=== PATIENT | female | born 1945 | race Caucasian/White ===

== ENCOUNTER 2016-06-05 15:53 | Inpatient (IN) ==
[2016-06-05 16:43] LABS: MANUAL DIFF NEEDED? NO
[2016-06-05 16:47] LABS: BASO% 0.7 % (0.0-0.8); EOS# 0.19 X1000 (0.0-0.7); EOS% 3.5 % (0.0-10.0); HEMATOCRIT 39.2 % (37.0-47.0); HEMOGLOBIN 13.4 g/dL (12.0-16.0); LYMPH# 1.48 X1000 (1.2-3.4); LYMPH% 26.9 % (20.5-51.1); MCH 30.5 PG (27-31); MCHC 34.2 g/dL (33-37); MCV 89.1 FL (81-99); MONO# 0.28 X1000 (0.11-0.59); MONO% 5.1 % (1.7-9.3); MPV 9.3 FL (7.4-10.4); NEUT% 63.8 % (42.2-75.2); PLT 371 X1000 (130-400)
[2016-06-05 16:57] LABS: INR 0.97; PROTIME 10.2 Seconds (9.2-11.7); PTT 27.5 Seconds (22.0-36.0)
--- NOTE | 2016-06-05 17:05 | Diag Imaging Result Document ---
PROCEDURE NAME: CHEST-PORTABLE - 06/05/2016 PORTABLE CHEST: FINDINGS: The lungs are well expanded. The heart is not enlarged. The vessels are not distended. No pneumonia. No pleural effusions identified. IMPRESSION: Negative chest.
[2016-06-05 17:07] LABS: AGAP 14; ALBUMIN 4.5 g/dL (3.5-5.0); ALKALINE PHOSPHATASE 59 U/L (32-104); BUN 9 mg/dL (8-22); CALCIUM 9.4 mg/dL (8.8-10.2); CHLORIDE 97 mmol/L (98-107); COSMO 278; GOT 25 U/L (10-30); GPT 16 U/L (10-36); POTASSIUM 2.7 mmol/L (3.5-5.1); SODIUM 140 mmol/L (136-145); TCO2 29 mmol/L (25-35); TOTAL BILIRUBIN 0.72 mg/dL (0.20-1.00); TOTAL PROTEIN 7.4 g/dL (6.3-8.3)
[2016-06-05 17:10] LABS: CK PROFILE 528 U/L (24-173)
[2016-06-05 17:11] LABS: ALLEN TEST YES; BE 6.1 mmoll (-3.0-3.0); BLOOD TYPE ARTERIAL; DRAW SITE L RADIAL; METHB 1.8 % (0.0-1.5); O2(CT) 15.8 mL/dL (15.0-23.0); PCO2(98.6) 43 mmHg (35-45); PO2(98.6) 73 mmHg (60-100); SAMPLE BLOOD; SAO2 98.3 % (95.0-100.0); THB 11.8 g/dL (11.5-17.4); pH(98.6) 7.46 (7.35-7.45)
[2016-06-05 17:11] LABS: URINE CULTURE NEEDED? NO; URINE MICRO REVIEW NEEDED? NO; URINE SOURCE CATH
--- NOTE | 2016-06-05 17:11 | Diag Imaging Result Document ---
PROCEDURE NAME: HEAD W/O CONTRAST - 06/05/2016 CT BRAIN WITHOUT CONTRAST: FINDINGS: No parenchymal hemorrhage. No epidural or subdural hematoma. No subarachnoid hemorrhage. Prominent microvascular ischemic changes. No mass identified on this noncontrasted exam. No sinus opacification. IMPRESSION: 1. No hemorrhage. 2. Prominent microvascular ischemic changes. A preliminary report was given at 4:50 PM.
[2016-06-05 17:12] LABS: MODALITY ROOM AIR
[2016-06-05 17:15] LABS: BILIRUBIN URINE NEGATIVE (NEGATIVE); BLOOD URINE TRACE (NEGATIVE); COLOR YELLOW; GLUCOSE URINE NEGATIVE (NEGATIVE); LEUKOCYTES URINE NEGATIVE (NEGATIVE); NITRITE URINE NEGATIVE (NEGATIVE); PH URINE 6.5; PROTEIN URINE TRACE mg/dL (NEGATIVE); TURBIDITY URINE CLEAR (CLEAR); UROBILINOGEN URINE NORMAL (NORMAL)
[2016-06-05 17:16] LABS: UR EPITHELIAL CELLS <10 /HPF (<10); URINE BACTERIA NEGATIVE /HPF; URINE RBC <10 /HPF (<10); URINE WBC <10 /HPF (<10)
[2016-06-05 17:27] LABS: CK INDEX 2.5 (0.0-2.5); CK-MB 13.45 ng/mL (0.0-5.0)
[2016-06-05] MEDS ORDERED: NS + KCL 20 MEQ 1,000 ML IV SCH (17:57)
[2016-06-05] MEDS ORDERED: KLOR-CON PO ONE (19:33)
[2016-06-05] MEDS ORDERED: ASPIRIN PO ONE (20:32)
[2016-06-05 20:47] LABS: UR AMPHETAMINES QUAL NONE DETECTED (NONE DETECT); UR BARBITUATES QUAL NONE DETECTED (NONE DETECT); UR BENZODIAZEPIN QUAL NONE DETECTED (NONE DETECT); UR CANNABINOIDS QUAL NONE DETECTED (NONE DETECT); UR COCAINE QUAL NONE DETECTED (NONE DETECT); UR METHADONE QUAL NONE DETECTED (NONE DETECT); UR OPIATES QUAL PRESUMPTIVE POSITIVE (NONE DETECT); UR OXYCODONE QUAL NONE DETECTED (NONE DETECT); UR PCP QUAL NONE DETECTED (NONE DETECT)
[2016-06-05 20:51] LABS: MAGNESIUM 1.9 mg/dL (1.5-2.7)
[2016-06-05] MEDS ORDERED: ZOFRAN IV PRN (21:36)
--- NOTE | 2016-06-05 21:50 | HISTORY AND PHYSICAL ---
PRIMARY CARE PROVIDER: Oscar Leal. CHIEF COMPLAINT: Weakness and difficulty walking. HPI: This is a 70-year-old female who comes into the emergency room today with her . They are both poor historians about her medical history. Apparently she has had around a year and a half of weakness. She had a hip injury, unsure which hip at this time, in the past 6 months or so. They were unable to describe if the hip was injured or broken. Apparently she did not have surgery on it. At any rate, she did not finish the physical therapy or so her family tells me. The patient is not very forthcoming about her medical history at all. She reportedly reads side effects of medications and stops taking them. She seems to have a past medical history of hypertension, hyperlipidemia and hypothyroidism. Per the patient she only takes a thyroid pill and Parkman occasionally for pain. According to the over the last 3 days she has stopped being able to ambulate. He stated that a couple of steps would take her several minutes. She has a walker but reportedly does not use it. She also has a motorized wheelchair that she does not seem to use. There was also some concern that she over the last day or so has been slurring her speech somewhat. On arrival laboratory data as well as a CT of her head and chest x-ray were obtained. Chest x-ray was negative. CT of her head showed prominent microvascular changes. The patient will be admitted for further evaluation and treatment. ALLERGIES: Latex and natural rubber as well as an unknown antibiotic. PAST MEDICAL HISTORY: Hypertension with no apparent treatment, questionable hyperlipidemia, hypothyroidism, chronic pain. PREVIOUS SURGICAL HISTORY: 1. Questionable lung surgery unsure which side. 2. Right foot surgery. 3. Partial thyroidectomy. SOCIAL HISTORY: Lives home with her . 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 Denies tobacco, alcohol or illicit drug use or abuse. They live in [place]. She has family that lives close by as well. 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 Children have osteoarthritis. Otherwise denies any family history. HOME MEDICATIONS: Parkman 5 one q.4-6 p.r.n., levothyroxine 112 mcg p.o. q.a.m. REVIEW OF SYSTEMS: Fourteen-point review of systems conducted with the patient. She complains of weakness in her legs. Denies dizziness, headache, chest pain, shortness of breath. Has complained of general fatigue. Denies nausea, vomiting, diarrhea, hematochezia , hematemesis, melena, hematuria dysuria. Does have complaint of occasional constipation. All other systems were reviewed and negative. PHYSICAL EXAMINATION: VITAL SIGNS: Temperature 98 degrees, pulse 59, respirations 16, blood pressure 169/89, oxygen saturation 98% on room air. GENERAL: Pleasant 70-year-old female who is a poor historian lying in the ER stretcher in no acute distress. She is alert and oriented x3. HEENT: Head is atraumatic, normocephalic. Pupils equal, round, reactive to light. Extraocular eye movement intact. Sclerae is anicteric. Conjunctivae is pink. Oral mucosa is moist. NECK: Supple. No JVD. No thyromegaly. Trachea is midline. No cervical lymphadenopathy. CARDIAC: Regular rhythm. S1-S2 appreciated. No murmurs, gallops, rubs. LUNGS: Clear to auscultation bilaterally. No rhonchi, wheezes or rales. Symmetrical rise and fall respirations. ABDOMEN: Soft, nondistended, nontender. Bowel sounds hypoactive all 4 quadrants. No pulsatile mass. No organomegaly. EXTREMITIES: No clubbing, cyanosis, or edema, 2+ pedal pulses bilaterally. MUSCULOSKELETAL: Global weakness noted, 4/5 upper extremity strength. Poor handgrip strength, able to hold extremities to gravity. Bilateral lower extremity 2 to 3/5 equal bilateral lower extremity strength, is able though hold for few seconds against gravity. NEUROLOGICAL: Alert and oriented x3. Somewhat delayed in answering questions. Cranial nerves 2- 12 appear to be grossly intact. DIAGNOSTIC DATA: CT of the head shows prominent microvascular ischemic changes. No hemorrhage. LABORATORY DATA: CBC within normal limits, coagulations within normal limits. ABG pH 7.46, pCO2 43, PO2 73, bicarb 29.6, this was on room air. Sodium 140 potassium 2.7, chloride 97, carbon dioxide 29, BUN 9, creatinine 0.8, glucose 92. CK 528, CK/MB 13.45, troponin 0.016. Urine. Trace protein and ketones otherwise unremarkable. Serum alcohol negative. ASSESSMENT AND PLAN: 1. Cerebrovascular accident versus transient ischemic attack with other differentials to include chronic atrophy related to age or early vascular dementia. The patient has been having weakness over the past year and a half which has been increasing. Apparently there has been a steep decline over the past 3 days. Aspirin 325 was given in the emergency room. Will continue aspirin 81 mg daily, check folate, B12, vitamin D, echocardiogram, carotid ultrasound and MRI in a.m. Check lipid profile. We will start patient on Zocor 20 mg p.o. until lipid profile returns. Place patient on aspiration precautions at this time. 2. Hypertension aware. This apparently is untreated at home as the patient removed herself from her medications. This will be watched overnight and conservatively treated if needed until CVA is ruled out. 3. Hyperlipidemia. Again patient is not on medication. Lipid profile has been ordered. Will start Zocor 20 mg p.o. at bedtime. 4. Hypothyroidism. Will order TSH, continue home Synthroid. 5. Elevated CK profile, will trend. This is possibly related to rhabdomyolysis as the patient has been somewhat bedbound over the last few days. Will consult Physical Therapy to begin working with the patient. Normal saline at 75 mL an hour. Further recommendations per patient clinical course. Dictated by GENIE García for Jayy Junior MD cc: MD Jayy Cleaning MD MTDD
[2016-06-05 23:04] LABS: CK INDEX 2.6 (0.0-2.5); CK-MB 9.93 ng/mL (0.0-5.0)
[2016-06-06] MEDS: NS 1,000 ML IV SCH ×2 (00:30→10:25)
[2016-06-06] MEDS: ZOCOR PO SCH ×3 (00:30→21:53)
[2016-06-06] MEDS: LOVENOX SUBQ SCH ×2 (00:30→21:50)
[2016-06-06] MEDS: SYNTHROID PO SCH (06:15)
[2016-06-06 07:48] LABS: AGAP 14; BUN 6 mg/dL (8-22); CALCIUM 8.2 mg/dL (8.8-10.2); CHLORIDE 106 mmol/L (98-107); CK PROFILE 397 U/L (24-173); COSMO 283; POTASSIUM 3.5 mmol/L (3.5-5.1); SODIUM 144 mmol/L (136-145); TCO2 24 mmol/L (25-35)
[2016-06-06 08:01] LABS: CK INDEX 2.7 (0.0-2.5); CK-MB 10.67 ng/mL (0.0-5.0)
[2016-06-06] MEDS ORDERED: ASPIRIN PO SCH (09:00)
[2016-06-06] MEDS: ASPIRIN PO SCH (09:12)
--- NOTE | 2016-06-06 15:25 | PROGRESS NOTE ---
DATE: 06/06/2016 SUBJECTIVE: Patient reports feeling fine. Although we noticed some slurred speech. OBJECTIVE: Vital Signs: Temperature 98.4 degrees, heart rate 57, respiratory rate 16, blood pressure 159/91. O2 saturation 100% on room air. General Examination: This is a very pleasant 70-year-old female lying in bed, in no acute distress. HEENT: Head is normocephalic, atraumatic. Anicteric sclerae and pale conjunctivae. Mucous membranes moist. Pupils equal, round, reactive to light and accommodation. Neck: Supple. No JVD noted. No carotid bruits. No lymphadenopathy. No thyromegaly. Cardiovascular: S1, S2 heard. No murmurs, gallops, or rubs. Regular rate and rhythm. Respiratory: Clear bilaterally to auscultation. No work of breathing or using accessory muscles. Abdomen: Soft, nontender to palpation. Bowel sounds present. No organomegaly. Extremities: No clubbing, cyanosis, or edema. Peripheral pulses present in both legs. Neurological: Motor strength 5/5 in both upper and lower extremities. Sensation is intact. Cranial nerves 2-12 grossly normal. But there is noted slurring speech that is something new according to the daughter who is at bedside. LABORATORY DATA: The labs from yesterday including CBC and BMP are completely normal. ASSESSMENT: 1. Cerebrovascular accident versus transient ischemic attack. 2. Hypertension. 3. Hyperlipidemia. 4. Hypothyroidism. 5. Left hip pain. PLAN: 1. The patient was admitted to the hospital but we would not were not completely sure about the real history. The patient is a very poor historian. Apparently, as per H P, it looks like she noticed a weakness for last 3 days and then she had a fall. Today upon my physical examination of the lower extremities the okay. He is normal so in any case, for suspicion of any stroke we are going to do an MRI of the brain and MRA of the brain and the neck. Also, because she had a fall and she had a possible trauma in the pelvis that was not checked by any doctor, so we are going to repeat CT of the abdomen and pelvis not only to see the bony structures but also because there is a history of weight between 30 and 45 pounds unintentionally. 2. For hypertension, we are going to continue checking blood pressure every 6 hours and will restart home medications in order to control heart rate and control blood pressure. 3. For hypothyroidism, we will continue with Synthroid. cc: Jean Carlos Jean Baptiste MD
[2016-06-06] MEDS: NORCO-5 PO PRN (17:51)
[2016-06-07] MEDS: NS 1,000 ML IV SCH ×2 (00:46→16:34)
[2016-06-07] MEDS: SYNTHROID PO SCH (05:59)
[2016-06-07] MEDS ORDERED: ATIVAN IV ONE (07:00)
--- NOTE | 2016-06-07 09:08 | Diag Imaging Result Document ---
PROCEDURE NAME: THORAX/ABDOMEN/PELVIS - 06/07/2016 CT CHEST WITH INTRAVENOUS CONTRAST: A CT dose reduction protocol was used. COMPARISON: 06/05/2016. FINDINGS: There is a trace left pleural effusion. There is a small pericardial effusion. Heart size is, otherwise, grossly normal. The great vessels are normal. There is some scattered linear atelectasis in the lung bases. Otherwise, no suspicious infiltrates. There are severe compression fractures of over 75% at T11 and L1. IMPRESSION: Trace left pleural effusion. Small pericardial effusion. Age- indeterminate compression fractures. CT ABDOMEN AND PELVIS WITH INTRAVENOUS CONTRAST: A CT dose reduction protocol was used. COMPARISON: None. FINDINGS: The liver, gallbladder, spleen, pancreas, adrenals, and kidneys are normal. There is moderate constipation. No bowel obstruction or inflammation. Urinary bladder, uterus, and rectum are normal. There are several scattered diverticula of the sigmoid colon. There are compression fractures at T11 and L1. IMPRESSION: Constipation. Diverticulosis coli. Otherwise, no acute disease. [facility]
--- NOTE | 2016-06-07 10:20 | Diag Imaging Result Document ---
PROCEDURE NAME: MRI BRAIN W W/O CONTRAST - 06/07/2016 MRI BRAIN WITHOUT AND WITH INTRAVENOUS CONTRAST: COMPARISON: Head CT 06/05/2016. FINDINGS: There is no area of restricted diffusion. There is significant periventricular white matter chronic microvascular disease. There is an old lacune at the superior left frontal lobe deep white matter. No intracranial mass or hemorrhage. No obvious, abnormal contrast enhancement. IMPRESSION: Chronic ischemic changes of the brain. No acute disease.
--- NOTE | 2016-06-07 10:33 | Diag Imaging Result Document ---
PROCEDURE NAME: MRA BRAIN W/O CONTRAST - 06/07/2016 MR ANGIOGRAM OF THE HEAD: COMPARISON: None. FINDINGS: Noncontrast time of flight technique was used. The major intracranial vessels are all normal. There is no evidence of aneurysm or significant stenosis. IMPRESSION: Negative exam.
[2016-06-07] MEDS: ASPIRIN PO SCH (10:40)
--- NOTE | 2016-06-07 10:42 | Diag Imaging Result Document ---
PROCEDURE NAME: MRA NECK W/CONT - 06/07/2016 COMPARISON: None. FINDINGS: Normal aortic arch. The great vessel origins are patent. The vertebrobasilar system is patent. On the right side, the common carotid artery is patent. There is minimal narrowing of the mid internal carotid artery, by perhaps about 25%. This is probably not significant. On the left side, the carotid artery system is patent. There is no evidence of stenosis here. No aneurysm. There is significant redundancy of both internal carotid arteries. IMPRESSION: Minimal stenosis of the mid right internal carotid artery by about 25%, otherwise negative exam.
--- NOTE | 2016-06-07 14:08 | ECHO REPORT ---
ORDER DATE: 06/06/2016 ECHOCARDIOGRAPHIC MEASUREMENTS: 1. Interventricular septum 0.8. Left ventricular posterior wall 0.8. Diastolic diameter 5.0. Left atrium 3.6. Aorta 3.7. 2. Normal left ventricular cavity size. Estimated ejection fraction of 60%. 3. Aortic valve leaflets were trileaflet, mildly sclerosed. Pulmonic valve was normal. Mitral valve was normal. Tricuspid valve was normal. 4. Peak velocity across the aortic valve less than 2 m/sec. There is no aortic stenosis. There is trace to mild aortic regurgitation. 5. There is trace to mild mitral regurgitation. 6. Mild tricuspid regurgitation. Peak velocity across the tricuspid valve was 2.1 m/sec. 7. There is no pericardial effusion or obvious intracardiac mass or thrombus seen. cc: MD Rell Gibson CRNP
--- NOTE | 2016-06-07 16:09 | PROGRESS NOTE ---
DATE: 06/07/2016 SUBJECTIVE: Patient reports feeling fine. She is still showing slurred speech but better in comparing with yesterday. She reports still feeling weak. OBJECTIVE: Vital Signs: Temperature 98.2 degrees, heart rate 76, respiratory rate 14, blood pressure 145/87, O2 saturation 97% on room air. General examination: This is a very pleasant, 70-year-old female lying in bed, in no acute distress. HEENT: Head is normocephalic, atraumatic. Anicteric sclerae. Pale conjunctivae. Mucous membranes moist. Pupils equal, round, reactive to light and accommodation. Neck: Supple. No JVD noted. No carotid bruits. No lymphadenopathy. No thyromegaly. Cardiovascular: S1, S2 heard. No murmurs, gallops, or rubs. Regular rate and rhythm. Respiratory: Clear bilaterally to auscultation. No work of breathing or using accessory muscles. Abdomen: Soft. Nontender to palpation. Bowel sounds present. No organomegaly. Extremities: No clubbing, cyanosis, or edema. Peripheral pulses present in both legs. Neurological: There is motor strength noted in 4 extremities. 5/5. Sensation is intact. Cranial nerves 2 through 12 grossly normal. Patient complains of back pain. LABORATORY DATA: There are no labs from today. ASSESSMENT: 1. Possible transient ischemic attack. 2. Hypertension. 3. Hyperlipidemia. 4. Hypothyroidism. 5. Left hip pain. 6. Physical deconditioning. PLAN: The patient was admitted to the hospital because although the patient is not a good historian, apparently there was a report that this patient was not able to walk completely and she had a fall. Patient was admitted for possible stroke versus TIA. We have done an MRI and MRA of the brain and MRA of the neck and they did not show anything in particular. Also because of a history of weight loss of 30-40 pounds during the last year unintentionally we have ordered a CT of the chest, abdomen, and pelvis looking for any malignancy and there was just some constipation. In any case, this patient seems like she is declining really quick so what our plan is now considering that all the workup has returned negative and the only exam that this is missing is the echo, our plan is to try to get her to a rehab facility because this patient is very weak. She has a history of recurrent falls. For hypertension, we will continue with the with the same management. For hypothyroidism, we will continue with Synthroid. cc: Jean Carlos Jean Baptiste MD
[2016-06-07] MEDS: LOVENOX SUBQ SCH (20:57)
[2016-06-07] MEDS: ZOCOR PO SCH (20:57)
[2016-06-07] MEDS: NORCO-5 PO PRN (22:00)
[2016-06-08] MEDS: NS 1,000 ML IV SCH (03:06)
[2016-06-08] MEDS: NORCO-5 PO PRN ×2 (03:06→20:49)
[2016-06-08] MEDS: SYNTHROID PO SCH (06:15)
[2016-06-08] MEDS: ASPIRIN PO SCH (08:02)
[2016-06-08] MEDS ORDERED: DULCOLAX PR ONE (14:36)
[2016-06-08] MEDS: MIRALAX PO SCH (16:03)
[2016-06-08] MEDS ORDERED: FLEET ENEMA PR ONE (18:10)
--- NOTE | 2016-06-08 18:44 | PROGRESS NOTE ---
DATE: 06/08/2016 SUBJECTIVE: This patient states that she is feeling better. She is complaining today of constipation. She is still having some slurred speech but apparently she is getting better as per the family members, and she states also that she has generalized weakness. OBJECTIVE: Vital Signs: Temperature 98.4 degrees, pulse 66, respiratory rate 20, blood pressure 162/88, O2 saturation 98 on room air. HEENT: Head normocephalic. No trauma. PERRLA. Neck: Supple. No JVD. No masses. Central trachea. Cardiovascular: RRR. No murmurs. Chest: Clear to auscultation. No wheezing. No rales. Abdomen: Soft, nontender, nondistended. No hepatosplenomegaly. Extremities: No clubbing, no cyanosis. No edema. Neurological: The patient is alert and oriented. She moves all 4 extremities but she has generalized weakness around 4/5. LABORATORY: No lab work today. ASSESSMENT AND PLAN: 1. Questionable TIA. We had a result of MRI and MRA of the brain and neck that did show any acute abnormality. We are going to still treat this patient in the hospital. We are trying to send this patient to a rehab center because of her generalized weakness. 2. Hypertension. I will start this patient on blood pressure medication. I will start with lisinopril 10 and I will adjust the dose accordingly. 3. Hyperlipidemia. This patient is on simvastatin. Continue the same management. 4. Hypothyroidism. Continue with Synthroid. 5. Left hip pain. This patient is on pain medication. 6. Physical deconditioning. Physical therapy is on board. reworker on board and looking for a rehab center placement. cc: Shadi Fraire MD
[2016-06-08] MEDS: LOVENOX SUBQ SCH (20:49)
[2016-06-08] MEDS: ZOCOR PO SCH (20:52)
[2016-06-09] MEDS: NORCO-5 PO PRN (00:24)
[2016-06-09] MEDS: SYNTHROID PO SCH (06:20)
[2016-06-09 07:29] LABS: MANUAL DIFF NEEDED? NO
[2016-06-09 07:46] LABS: BASO% 0.3 % (0.0-0.8); EOS# 0.18 X1000 (0.0-0.7); EOS% 2.6 % (0.0-10.0); HEMOGLOBIN 12.4 g/dL (12.0-16.0); LYMPH# 0.88 X1000 (1.2-3.4); LYMPH% 12.8 % (20.5-51.1); MCH 30.2 PG (27-31); MCHC 33.5 g/dL (33-37); MONO# 0.41 X1000 (0.11-0.59); MPV 9.6 FL (7.4-10.4); NEUT% 78.3 % (42.2-75.2); PLT 319 X1000 (130-400); RBC 4.11 XMIL (4.2-5.4)
[2016-06-09 08:07] LABS: AGAP 12; BUN 9 mg/dL (8-22); CALCIUM 9.1 mg/dL (8.8-10.2); CHLORIDE 104 mmol/L (98-107); COSMO 281; POTASSIUM 3.5 mmol/L (3.5-5.1); SODIUM 142 mmol/L (136-145); TCO2 26 mmol/L (25-35)
[2016-06-09] MEDS: ASPIRIN PO SCH (08:40)
[2016-06-09] MEDS: MIRALAX PO SCH (08:41)
[2016-06-09] MEDS ORDERED: PRINIVIL PO SCH (09:00)
[2016-06-09 13:52] VITALS: BP 167/97
--- NOTE | 2016-06-09 14:09 | DISCHARGE SUMMARY ---
ADMISSION DATE: 06/05/2016 DISCHARGE DATE: 06/09/2016 CONSULTATIONS: None. PERTINENT PROCEDURES: 1. Head CT showed no hemorrhage, prominent microvascular ischemic changes. 2. Echocardiogram showed an ejection fraction of 60%. 3. Brain MRA negative. 4. Brain MRI showed chronic ischemic changes of the brain, no acute disease. 5. Neck MRA showed minimal stenosis of the mid right internal carotid artery by about 25%. Otherwise, negative examination. 6. Chest, abdomen, and pelvis CT showed trace pleural effusions. Small pericardial effusion, age indeterminate. Compression fractures, constipation, and diverticulosis coli, but otherwise no acute disease. DISCHARGE DIAGNOSES: 1. Questionable transient ischemic attack. While workup did not show any acute abnormality, patient will be discharged to rehabilitation in reference to her generalized weakness. 2. Hypertension. Continue with home medications. 3. Hyperlipidemia. Continue statin. 4. Hypothyroidism. Continue Synthroid. 5. Left hip pain. Continue on pain medication. 6. Physical deconditioning. The patient has worked with physical therapy and will be discharged to rehabilitation. HOSPITAL COURSE: Briefly, Ms. Patel is a 70-year-old female who has a past medical history of hypertension, questionable hyperlipidemia, hypothyroidism, and chronic pain. The patient came to the emergency department because the patient has had around 1-1/2 years of weakness. She had a hip injury, unsure exactly what time it had happened, but was in the last 6 months or so. They were unable to describe how the hip was injured or broken. There was no surgery performed on the hip. The patient did not finish any physical therapy. She reportedly reads side effects of medications and she will stop taking them. She will only take her thyroid pill and Magna occasionally, but, according to the , the patient over the last 3 days had stopped being able to ambulate. He stated that she would take a couple of steps and that even that would take her several minutes. She has a walker, but reportedly does not use it. She also has a motorized wheelchair that she does not seem to use, and there was concern that over the last day or so prior to her admission she had been slurring her speech somewhat. On arrival in the emergency department, her laboratory data as well as CT of her head and chest x-ray were all negative. The patient was admitted for cerebrovascular accident versus transient ischemic attack. All workup was negative and just showed chronic microvascular ischemic changes. She did have a mild stenosis of the mid right internal carotid artery by about 25%. There was also reported weight loss history of 30-40 pounds during this last year unintentionally. Did a CT of the chest, abdomen, and pelvis looking for any malignancies. There was just some kind constipation and diverticulosis. Physical Therapy was consulted to work with the patient. [facility] was consulted for rehabilitation placement. The patient is appropriate for discharge today to rehabilitation. VITAL SIGNS: Temperature is 98.4 degrees, heart rate 70, respirations 20, blood pressure 149/83, O2 saturation is 98% on room air. DISCHARGE MEDICATIONS: 1. Aspirin 81 mg p.o. daily. 2. Magna 1 tablet p.o. q.4-6 hours p.r.n. 3. Synthroid 112 mcg p.o. q.a.m. 4. Prinivil 10 mg p.o. daily. 5. MiraLAX 17 g p.o. daily. 6. Zocor 20 mg p.o. at bedtime. FOLLOWUP: Patient is being discharged to rehabilitation. She can follow up with her primary care physician, Dr. Oscar Leal, after rehabilitation. Patient can return to the emergency department for any worsening of symptoms. Dictated by GENIE Chin for Shadi Fraire MD cc: MD Oscar Carlisle MD
--- NOTE | 2016-06-22 02:48 | PROVIDER DOCUMENTATION ---
This chart was entered by Funmi Banda Scribe, acting as scribe for Seamus Clark MD. HPI-General Adult - General Source: patient <Josh Walters - Last Filed: 06/16/16 17:01> - General Source: patient - History of Present Illness -Gen Adult Nature of Presenting Problems: Pt is a 70 yof who came to the ED with a cc of weakness and slurred speech. Pt reports she has had weakness for a while and had a MRI done and there was nothing found. Pt reports he weakness got worse over the past two days, she is dragging her right foot and has slurred speech. Location of Pain/Injury: reports: none Pain Radiation: reports: no radiation Quality of Pain: reports: none Onset/Duration: reports: 1 week ago Timing: reports: still present Modifying Factors: improves with: movement Associated Symptoms: reports: sensory/motor loss, weakness, trouble walking Similar Symptoms Previously?: Yes Recently seen or treated by another doctor?: Yes <Seamus Clark I - Last Filed: 06/22/16 02:47> - General Chief Complaint: Weakness Stated Complaint: CANT WALK,SLURRED SPEECH Time Seen by Provider: 06/05/16 16:19 Allergies/Adverse Reactions: Patient Allergies Allergy/AdvReac Type Severity Reaction Status Date / Time Latex, Natural Rubber Allergy RASH Verified 06/05/16 16:43 UNKNOWN ANTIBIOTIC Allergy SHORTNESS Uncoded 06/05/16 16:44 OF BREATH Home Medications: Home Medication List Medication Instructions Recorded Confirmed Last Taken Type Hydrocodone/Acetaminophen 1 tab PO Q4-6H PRN PRN 06/05/16 06/05/16 2 Days Ago History [Hydrocodon-Acetaminophen 5-325] Levothyroxine Sodium 112 mcg PO QAM 06/05/16 06/05/16 1 Day Ago History Aspirin 81 mg PO DAILY #90 chewtab 06/09/16 Unknown Rx Hydrocodone/APAP 5 mg/325 mg 1 each PO TID PRN PRN #20 tablet 06/09/16 Unknown Rx [[place]-5] LISINOpril [Prinivil] 10 mg PO DAILY #90 tablet 06/09/16 Unknown Rx Polyethylene Glycol 3350 [Miralax] 17 gm PO DAILY powder, packet 06/09/16 Unknown Rx SIMVAstatin [Zocor] 20 mg PO QHS #90 tablet 06/09/16 Unknown Rx Review of Systems - Adult - REVIEW OF SYSTEMS - ADULT Constitutional: reports: no symptoms reported Eyes: reports: no symptoms reported Ears, Nose, Mouth & Throat: reports: no symptoms reported Cardiovascular: reports: no symptoms reported Respiratory: reports: no symptoms reported Gastrointestinal: reports: no symptoms reported Genitourinary: reports: no symptoms reported Musculoskeletal: reports: no symptoms reported Integumentary: reports: no symptoms reported Neurological: reports: no symptoms reported Psychiatric: reports: no symptoms reported Endocrine: reports: no symptoms reported Hematologic/Lymphatic: reports: no symptoms reported Allergic/Immunologic: reports: no symptoms reported All Other Systems: Reviewed and Negative <Josh Walters - Last Filed: 06/16/16 17:01> - REVIEW OF SYSTEMS - ADULT Constitutional: denies: chills, fever Eyes: denies: decreased vision, double vision Ears, Nose, Mouth & Throat: reports: no symptoms reported Cardiovascular: denies: chest pain, heart murmur Respiratory: denies: pleurisy, wheezing Gastrointestinal: reports: no symptoms reported Genitourinary: reports: no symptoms reported Musculoskeletal: reports: no symptoms reported Integumentary: reports: no symptoms reported Neurological: reports: loss of balance, slurred speech. denies: paresthesia, seizure Psychiatric: reports: no symptoms reported Endocrine: reports: no symptoms reported Hematologic/Lymphatic: reports: no symptoms reported Allergic/Immunologic: reports: no symptoms reported All Other Systems: Reviewed and Negative <Seamus Clark I - Last Filed: 06/22/16 02:47> Past History - Adult - PAST MEDICAL HISTORY-ADULT Review of Records: reports: Old Records Reviewed, Nursing Assessment Review Major Childhood Illnesses: reports: denies history <Josh Walters - Last Filed: 06/16/16 17:01> - PAST MEDICAL HISTORY-ADULT Review of Records: reports: Old Records Reviewed, Nursing Assessment Review Major Childhood Illnesses: reports: denies history Cardiovascular: reports: HTN, hyperlipidemia Respiratory: reports: denies history Gastrointestinal: reports: denies history Obstetrical/Gynecological: reports: denies history Genitourinary: reports: denies history Musculoskeletal: reports: denies history Neurological: reports: denies history Endocrine/Immune: reports: thyroid disorder Other Conditions: reports: denies history - IMMUNIZATION STATUS Childhood Immunizations: See Nurse Assessment Flu Vaccine: See Nurse Assessment - FAMILY HISTORY Family History: reviewed, not pertinent <Seamus Clark I - Last Filed: 06/22/16 02:47> Physical Exam-General - CONSTITUTIONAL General Appearance: appears well, alert <Josh Walters - Last Filed: 06/16/16 17:01> - CONSTITUTIONAL General Appearance: appears well, alert - EYES Eyes: PERRL/EOMI, pink conjunctivae - HEAD, EARS, NOSE, MOUTH & THROAT HENMT: normocephalic/atraumatic, moist mucous membranes, normal ENT inspection - NECK Neck: non-tender - RESPIRATORY Respiratory: chest non-tender, lungs clear, normal breath sounds - CARDIOVASCULAR Cardiovascular: normal peripheral pulses, regular rate, rhythm, no edema - GASTROINTESTINAL (ABDOMEN) Abdominal Exam: normal bowel sounds, non tender - LYMPHATIC Lymphatic: no adenopathy - MUSCULOSKELETAL Back Exam: normal inspection, no CVA tenderness, no vertebral tenderness - SKIN Integumentary: normal color, normal turgor - NEUROLOGIC Neurologic: motor weakness - PSYCHIATRIC Psych/Mental Status: normal mood/affect, normal thought content, normal thought process, oriented x 3 <Seamus Clark I - Last Filed: 06/22/16 02:47> Progress - PLAN OF CARE/RESULTS Progress/Plan/Lab Results: Orders Category Date Time Status Admit - [facility] Routine AdmDCTranf 06/05/16 21:36 Ordered Activity - Strict Bedrest Q1D Care 06/05/16 21:36 Active Aspiration Precautions DIRECTED Care 06/05/16 21:36 Active Cardiac Monitoring DIRECTED Care 06/05/16 16:26 Completed Elevate Head of Bed DIRECTED Care 06/05/16 21:36 Active Finger Stick Blood Sugar (ED) DIRECTED Care 06/05/16 16:26 Completed IV Insertion ORDERED Care 06/05/16 21:36 Completed Intake and Output-Strict ORDERED Care 06/05/16 21:36 Active Neurological Check q4h Care 06/05/16 21:36 Active Oxygen Therapy- ED Nursing DIRECTED Care 06/05/16 16:26 Completed Saline Loc NOW Care 06/05/16 16:26 Completed Vital Signs Order Q6-HR ASSESS Care 06/05/16 21:36 Active Social Service Consult Routine Cons 06/05/16 21:36 Active Mechanical Soft Diet Diet 06/05/16 20:18 Completed CHEST-PORTABLE [RAD] Stat Exams 06/05/16 16:26 Completed HEAD W/O CONTRAST [CT] Stat Exams 06/05/16 16:26 Completed ABG [RESP] Routine Lab 06/05/16 17:00 Completed ALCOHOL BLOOD Stat Lab 06/05/16 16:12 Completed BASIC METABOLIC PANEL [CHEM] Routine Lab 06/06/16 06:55 Completed CBC WITH ELECTRONIC DIFF [HEME] Stat Lab 06/05/16 16:12 Completed CK PROFILE [SP CHEM] NOW Lab 06/05/16 22:17 Completed CK PROFILE [SP CHEM] Routine Lab 06/06/16 06:55 Completed CK PROFILE [SP CHEM] Stat Lab 06/05/16 16:12 Completed COMPREHENSIVE METABOLIC PANEL [CHEM] Stat Lab 06/05/16 16:12 Completed FOLATE Stat Lab 06/05/16 22:17 Completed LACTATE, PLASMA [CHEM] Stat Lab 06/05/16 16:59 Completed LIPID PROFILE W/DIR LDL [LIPIDS] Routine Lab 06/06/16 06:55 Completed MAGNESIUM [CHEM] Routine Lab 06/05/16 16:12 Completed PROTIME WITH INR [COAG] Stat Lab 06/05/16 16:12 Completed PTT [COAG] Stat Lab 06/05/16 16:12 Completed Po4 [PHOSPHORUS] [CHEM] Stat Lab 06/05/16 16:12 Completed TROPONIN T NOW Lab 06/05/16 22:17 Completed TROPONIN T Routine Lab 06/06/16 06:55 Completed TROPONIN T Stat Lab 06/05/16 16:12 Completed TSH Stat Lab 06/05/16 22:17 Completed UDS [URINE DRUG SCREEN] Stat Lab 06/05/16 16:59 Completed URINALYSIS W/POSS RFLX CULT-1 [URINALYSIS] Stat Lab 06/05/16 16:59 Completed VITAMIN B12 Stat Lab 06/05/16 22:17 Completed VITAMIN D 25 HYDROXY Routine Lab 06/06/16 06:55 Completed 0.9% Sodium Chloride Inj [Ns] 1,000 ml Med 06/05/16 21:36 Discontinued IV 75 mls/hr Aspirin Med 06/05/16 20:32 Discontinued 325 mg PO NOW ONE Aspirin Med 06/06/16 09:00 Discontinued 81 mg PO DAILY Enoxaparin [Lovenox] Med 06/05/16 21:36 Discontinued 40 mg SUBQ Q24H Levothyroxine [Synthroid] Med 06/06/16 07:00 Discontinued 112 microgm PO QAM@0700 Ns + KCl 20 Meq 1,000 ml Med 06/05/16 17:57 Discontinued IV Per Protocol Ondansetron [Zofran] Med 06/05/16 21:36 Discontinued 4 mg IV Q4H PRN PRN Potassium Chloride E.r. [Klor-Con] Med 06/05/16 19:33 Discontinued 40 meq PO NOW ONE SIMVAstatin [Zocor] Med 06/05/16 21:36 Discontinued 20 mg PO QHS Pulse Oximetry Stat Oth 06/05/16 16:26 Completed Telemetry [OM.EQ] Routine Oth 06/05/16 21:36 Active Echo Spec/Color Dop W/O Contra Routine Ther 06/06/16 08:00 Completed Physical Therapy Eval/Treatment [OM.PT] Routine Ther 06/05/16 21:36 Active Speech Evaluation [OM.SPT] Routine Ther 06/05/16 21:36 Active Transfer/Admit Order [TRANSFER] Routine Transfer 06/05/16 20:16 Completed Result Diagrams: 06/09/16 06:55 06/09/16 06:55 <Josh Walters - Last Filed: 06/16/16 17:01> - PLAN OF CARE/RESULTS Progress/Plan/Lab Results: Vital Signs - 8 hr 06/05/16 15:55 Temperature 98.1 F Pulse Rate 76 Respiratory Rate 16 Blood Pressure 145/86 O2 Sat by Pulse Oximetry 100 Result Diagrams: 06/09/16 06:55 06/09/16 06:55 - REASSESSMENT Reassessment #2 Status: improving - EKG 1 Time of EKG reading by physician:: 16:22 EKG Read and Signed by:: Seamus lCark EKG Interpretation (*Must complete 3 of following elements*): Abnormal Rate: 60 (possible anterior infarct; ST and T wave abnormality, consider lateral ischemia) Rhythm: NSR - CHANGE OF SHIFT REPORT (ED Provider) Report Given and Care Transferred to:: Hemodynamically stable. Awaiting hospitalist response. Comment: Patient care transitioned to Dr. Walters at 1900. Patient is hemodynamically stable. <Seamus Clark I - Last Filed: 06/22/16 02:47> Departure - Departure Time of Disposition Decision: 21:00 Certified Medical Emergency: Emergent - Critical Care Note This patient required my direct & personal management of CC.: No <Josh Walters - Last Filed: 06/16/16 17:01> - Departure Time of Disposition Decision: 21:00 Certified Medical Emergency: Emergent - Critical Care Note This patient required my direct & personal management of CC.: Yes <Seamus Clark I - Last Filed: 06/22/16 02:47> - Departure DIAGNOSIS: Hypokalemia, CVA (cerebral vascular accident) Disposition: ADMITTED INPATIENT 09 Condition: Stable Attestation - Physician/ DONIS Attestation The physician spent face to face time with patient:: Yes Advanced Practice Provider documentation review:: The physician spent face to face time with this patient and agrees with all MLP documentation, treatment, and medical decision making by the MLP. See provider notes for further information. <Seamus Clark I - Last Filed: 06/22/16 02:47> This chart was documented by the indicated scribe, (Funmi Banda Scribe) and accurately reflects the services I performed and decisions made by , Seamus Clark MD, as attested by the provider's signature.
== END 2016-06-09 15:06 ==
LOC: ED 15:53 → SUATTDRO 21:08 → 3N 21:08
PROVIDERS: ATTEND Internal Medicine